=== PATIENT | male | born 1980 | race Caucasian/White ===

== ENCOUNTER 2021-06-26 13:41 | Emergency (ER) | payer MEDICARE, MEDICAID, SELFPAY ==
[2021-06-26 13:54] VITALS: BP 148/103; PULSE 88; RESP 18; TEMP 37; O2SAT 98
--- NOTE | 2021-06-26 15:43 | ED.GENADUL_ITS ---
Discharge Plan Disposition Patient Disposition: HOME Condition: Good Discharge Details Clinical Impression: Laceration Primary Care Provider: Len Combs ED Provider: Elizabeth Webb Discharge Instructions Instructions: Laceration (ED) Additional Instructions: Suture removal in 10 to 12 days Keep wound clean and dry Please return with worsening pain, spreading redness, fever or chills, or with any new or worsening complaints Discharge Data Discharge Date/Time-TO BE ENTERED AT DEPARTURE: 06/26/21 16:02 HPI General Mode of arrival: ambulatory . Date/Time Provider Initiated Documentation: 06/26/21 15:43 . Limitations to Documentation: no limitations . Information obtained by: patient . HPI Narrative: This 41-year-old male a presents with report of laceration to his right lower extremity just prior to arrival. He denies any additional injuries. States he was carrying a bag with a piece of glass that lacerated his blum. Tetanus is reportedly up-to-date. Denies any strength or sensation change. Related Data Allergies Allergy/AdvReac Type Severity Reaction Status Date / Time No Known Allergies Allergy Unverified 06/26/21 14:00 General Stated Complaint: Laceration ANABELLA: 4 Review of Systems Narrative: Review of systems obtained x3 and negative aside from indicated in HPI PFSH Social History Smoking/Tobacco Use Status: Current every day Tobacco Type: cigarettes Smoking risk assessment performed?: Yes Alcohol Intake: never Substance use type: marijuana Exam Const General: cooperative and comfortable Extrem Upper/lower leg/hip images: 1. 1 inch laceration noted to blum Other: Neurovascularly intact, strength and sensation intact Course Vital Signs Vital signs: Vital Signs Temperature 37.0 C 06/26/21 13:54 Pulse 88 06/26/21 13:54 Respiratory Rate 18 06/26/21 13:54 Blood Pressure 148/103 H 06/26/21 13:54 Pulse Oximetry 98 06/26/21 13:54 Temperature 37.0 C 06/26/21 13:54 Temperature Source Skin 06/26/21 13:54 Pulse 88 06/26/21 13:54 Respiratory Rate 18 06/26/21 13:54 Respiratory Effort 06/26/21 13:59 Blood Pressure 148/103 H 06/26/21 13:54 Blood Pressure Position Sitting 06/26/21 13:54 Pulse Oximetry 98 06/26/21 13:54 Oxygen Delivery Method Room Air 06/26/21 13:54 Oxygen Flow Rate 0 06/26/21 13:54 Pain Level 5 06/26/21 13:54 Procedures Laceration Laceration 1: Site: lower extremity Side (If applicable): right Size (cm): 2.5 Description: linear Local Anesthetic: Lidocaine 1% Amount of anesthesia used (mL): 3 Size (cm): 4-0
== END 2021-06-26 16:02 | disposition home or self-care (01) ==
PROVIDERS: Emergency Provider Physician Assistant; PCP Family Medicine
DX: S81.811A Laceration without foreign body, right lower leg, initial encounter (principal); W25.XXXA Contact with sharp glass, initial encounter
CPT/HCPCS: 12001

== ENCOUNTER 2021-07-07 00:33 | Emergency (ER) | payer MEDICARE, MEDICAID, SELFPAY ==
[2021-07-07 00:37] VITALS: BP 137/94; PULSE 112; RESP 18; TEMP 36.5; O2SAT 95
--- NOTE | 2021-07-07 01:06 | W.ED.GENAD ---
Discharge Plan Disposition Patient Disposition: HOME Condition: Good Discharge Details Clinical Impression: Laceration re-check, Cellulitis Primary Care Provider: Len Combs ED Provider: Pedro Luna Home Meds and New Rx's Prescriptions: New cephalexin 500 mg capsule 500 mg PO QID 7 Days Qty: 28 RF: 0 Continued methylphenidate HCl 20 mg tablet 20 mg PO TID RF: 0 lamotrigine 100 mg tablet 100 mg PO DAILY RF: 0 Discharge Instructions Instructions: Cellulitis (ED) Additional Instructions: At this time you have evidence of cellulitis, which is an infection, at the area of your laceration. Please continue to rebandage the area daily. Keep it dry and do not soak it. Please take the antibiotic Keflex as directed. You have been given a few pills to go home with, and the rest of your prescription has been sent to your pharmacy. If you notice increasing redness spreading out from the area that was circled please return immediately for reassessment. If you notice tenderness in your calf or your leg please return for assessment of potential blood clot. If you notice any worsening of your symptoms, or any new symptoms such as vomiting, diarrhea, fever, chills, shortness of breath, chest pain, numbness, weakness, or fainting , please return immediately to the emergency department for reevaluation. Please follow up with your primary care provider as soon as possible for reassessment and reevaluation. As always, it was a pleasure participating in your medical care today. Referrals: Len Combs [Primary Care Provider] - Medical Decision Making 41-year-old male with a past medical history of ADHD, bipolar type I disorder, recent laceration about 8 days ago to his right blum presents today for evaluation of wound recheck. Patient had a small laceration that was cleaned aggressively 7 days ago, and sutured with 3 simple interrupted sutures. No foreign body was noted at time of initial assessment. Unfortunately over the last 48 hours there has been swelling, redness, and a very small amount of drainage coming from the laceration site. Patient denies any fever or chills whatsoever. He has not taken any Tylenol or Motrin. He denies any calf pain, thigh pain, or other pain aside for at the site of the laceration itself. He does admit to a small area of swelling in the right lower extremity in general. Patient denies any other complaints at this time. Pain is made worse with movement and palpation. Improved by nothing. No other modifying factors. Patient's right blum demonstrates a small area of dehiscence for the initial laceration site, central suture is no longer in place. Small amount of tissue edema in that area. Mild serosanguineous drainage, no purulent drainage. No calf tenderness to suggest DVT. No clinical evidence of compartment syndrome whatsoever. There is a small area of cellulitis and a small area of erythema circumferentially extending around the laceration with a diameter of roughly 4 cm. At this time the remaining 2 sutures were removed, the areas that they were attached to demonstrated excellent wound healing. No evidence of dehiscence there. The central area of dehiscence itself is roughly 2.5 cm. At this time with the evidence of mild cellulitis will prescribe an antibiotic, will give a dose of Keflex here and a prescription for home. The remainder of the wound will require healing through secondary intention. Recommend close follow-up and reevaluation in the next 4 to 5 days with the patient primary care provider. Recommend ice, and elevation. Discussed red flags which to return. At This time with no evidence of necrotizing fasciitis, gangrene, DVT, severe cellulitis, or clinical evidence of systemic infection, I do feel that the patient can be safely discharged. Patient and significant other are requesting tetanus update. We will give the tetanus shot today. I have extensively reviewed the treatment plan and discharge instructions with the patient and their family. I have addressed all patient concerns at this time. The patient and family was made aware of what symptoms to monitor for that would warrant a return to the emergency department. Discussed the plan with the patient and family, they demonstrate verbal understanding and agreement with our assessment and plan at this time. The documentation in this chart was dictated using [employer] dictation software. Please excuse any dictation errors. HPI General Date/Time Provider Initiated Documentation: 07/07/21 00:55. HPI Narrative: 41-year-old male with a past medical history of ADHD, bipolar type I disorder, recent laceration about 8 days ago to his right blum presents today for evaluation of wound recheck. Patient had a small laceration that was cleaned aggressively 7 days ago, and sutured with 3 simple interrupted sutures. No foreign body was noted at time of initial assessment. Unfortunately over the last 48 hours there has been swelling, redness, and a very small amount of drainage coming from the laceration site. Patient denies any fever or chills whatsoever. He has not taken any Tylenol or Motrin. He denies any calf pain, thigh pain, or other pain aside for at the site of the laceration itself. He does admit to a small area of swelling in the right lower extremity in general. Patient denies any other complaints at this time. Pain is made worse with movement and palpation. Improved by nothing. No other modifying factors. Related Data Home Medications Medication Instructions Recorded Confirmed cephalexin 500 mg PO QID 7 Days #28 cap 07/07/21 lamotrigine 100 mg PO DAILY 07/07/21 07/07/21 methylphenidate HCl 20 mg PO TID 07/07/21 07/07/21 Previous Rx's Medication Instructions Recorded cephalexin 500 mg PO QID 7 Days #28 cap 07/07/21 Allergies Allergy/AdvReac Type Severity Reaction Status Date / Time No Known Allergies Allergy Unverified 06/26/21 14:00 General Stated Complaint: Cellulitis ANABELLA: 4 Review of Systems All systems reviewed & are unremarkable except as noted in HPI and below PFSH Medical History ADHD Bipolar 1 disorder Social History Smoking/Tobacco Use Status: Current every day Tobacco Type: cigarettes Smoking risk assessment performed?: Yes Alcohol Intake: never Drug use: Daily Substance use type: marijuana Details: takes at night to help sleep and helps with pain Do you feel safe at home: Yes Do you feel safe in your relationship?: Yes Additional Social history: pt is not alone, answers most questions Exam Narrative Exam Narrative: 1.Const: Well-nourished, Well-developed, appearing stated age 2.Eyes: PERRL, no conjunctival injection, and symmetrical lids. 3.ENT: Atraumatic external nose and ears. Moist MM. Neck: Symmetric, trachea midline, No thyromegaly. 4.CVS: Peripheral pulses 2+ and equal in all extremities. Brisk capillary refill in all extremities. 5.RESP: Unlabored respiratory effort. Clear to auscultation bilaterally. No wheezes rales or rhonchi 6.GI: Soft, Nontender/Nondistended, No hepatosplenomegaly. No guarding or rebound. 7.MSK: Normocephalic, Extremities w/o deformity, No cyanosis or clubbing, Normal movement of all extremities 8.Skin: Right lower extremity over the blum demonstrates mild swelling, and edema of the tissues at the site of the initial laceration. Wound demonstrates a lack of wound edge reapproximation in the center, with evidence of mild dehiscence. No fluctuance, no purulent drainage. A small amount of serosanguineous drainage is present from the center. No calf tenderness, minimal trace edema around the anterior blum. There is a small area of erythema circumferentially around the laceration site with a diameter of roughly 4 cm. 2 sut[address] still in place, one central suture is no longer in place. 9.Neuro: looseleaf binder coverer II-XII grossly intact. Sensation grossly intact, no focal neurologic deficits. 10.Psych: (AAO) x3. Appropriate mood and affect Course Vital Signs Vital signs: Vital Signs Temperature 36.5 C 07/07/21 00:37 Pulse 112 H 07/07/21 00:37 Respiratory Rate 18 07/07/21 00:37 Blood Pressure 137/94 H 07/07/21 00:37 Pulse Oximetry 95 07/07/21 00:37 Temperature 36.5 C 07/07/21 00:37 Temperature Source Skin 07/07/21 00:37 Pulse 112 H 07/07/21 00:37 Respiratory Rate 18 07/07/21 00:37 Respiratory Effort Non-Labored 07/07/21 00:41 Blood Pressure 137/94 H 07/07/21 00:37 Pulse Oximetry 95 07/07/21 00:37 Pain Level 1 07/07/21 00:37
[2021-07-07] MEDS: Cephalexin 500 MG CAP, 4 CAPS/BTL PO (01:16)
== END 2021-07-07 01:27 | disposition home or self-care (01) ==
LOC: ER 01:09
PROVIDERS: Emergency Provider Student in an Organized Health Care Education/Training Program; PCP Family Medicine
DX: S81.811D Laceration without foreign body, right lower leg, subsequent encounter (principal); T81.33XA Disruption of traumatic injury wound repair, initial encounter; X58.XXXD Exposure to other specified factors, subsequent encounter; L03.115 Cellulitis of right lower limb; Z48.02 Encounter for removal of sutures
CPT/HCPCS: 90471; 99284; 99283